=== PATIENT | female | born 1990 | race Caucasian/White ===

== ENCOUNTER 2018-10-09 15:15 | Emergency (ER) | payer OTHER ==
--- NOTE | 2018-10-09 16:16 | EDPHY ---
HPI/HX/ROS/PE/MDM Narrative: CHIEF COMPLAINT: Chest pain x3 days HISTORY OF PRESENT ILLNESS: 28-year-old female presents emergency department reporting that she developed left-sided chest discomfort about 3 days ago. Discomfort has been consistent and present since that time. She has some dyspnea on exertion. She has also noted intermittent episodes of a fast heart rate. Slight lightheadedness with this but no fainting. No radiation of the pain. No nausea, vomiting, or diarrhea. No fevers or chills. Patient did feel like she may be developing a cold with complaints of a "scratchy" feeling in the center of her chest. She took some Mucinex. She has not had a significant cough. She is also worried because her father of an aortic dissection secondary to Marfan syndrome. No history of DVTs or PEs. No estrogen use. Nonsmoker. REVIEW OF SYSTEMS: Aside from elements discussed in the HPI, a comprehensive 10-point review of systems was reviewed and is negative. PAST MEDICAL HISTORY: Patient denies. SOCIAL HISTORY: No control currently, no estrogen use, nonsmoker. Does drink alcohol each evening. VITAL SIGNS: Reviewed by me. Heart rate noted to be 110s to 120s during my examination. GENERAL: Well-developed, well-nourished, resting comfortably in no respiratory distress. HEENT: Atraumatic. Eyes: No icterus, no injection. Mouth: moist mucous membranes. No erythema or lesions. Neck: supple with no adenopathy. LUNGS: Clear to auscultation bilaterally, no wheezes, rhonchi or rales. CARDIAC: Mild tachycardia. No rubs murmurs or gallops. CHEST: Tenderness to palpation along the left sternal border. No crepitus. ABDOMEN: Soft, nontender, nondistended, bowel sounds normal. BACK: No CVA tenderness. EXTREMITIES: No trauma. No edema. Range of motion is normal throughout. NEURO: Alert and oriented, grossly nonfocal. SKIN: Warm and dry, no rash. PSYCHIATRIC: Normal mentation, no agitation. Portions of this note were transcribed by a senior medical technologist. I personally performed a history, physical exam, medical decision making, and confirmed accuracy of information the transcribed note. ED Course: 28-year-old female presenting with 3 days of left-sided chest discomfort. Patient does have slight tenderness on examination. She feels like she may be developing a very slight upper respiratory infection. She certainly has not had significant infectious symptomatology. No risk factors for DVTs or PEs. She is somewhat tachycardic so a D-dimer will be ordered. Her father also from an aortic dissection secondary to Marfan syndrome. EKG demonstrates normal sinus rhythm without acute ischemic changes. Troponin, after 3 days of pain, is negative. D-dimer is negative. Laboratory evaluation is negative. Chest x-ray demonstrates fibrotic streaks at the left base, aortic silhouette appears normal. Large lung volumes. Patient received a neb treatment with really no change in her symptoms. I held a long discussion with the patient concerning the workup thus far. She remains is concerned regarding a possibility of a dissection. She did have abnormal bilateral blood pressure measurements. CT angiogram of the chest was ordered. This was reported to me by Dr. Hoffman showing no evidence of dissection. Patient was discharged with a diagnosis of chest pain, not otherwise specified. She will use Tylenol or ibuprofen as needed for her left-sided chest discomfort. She will follow up with Cardiology or her primary care physician to consider Holter monitor. MDM: Differential diagnosis of the patient's complaints of chest pain, mild dyspnea on exertion, and intermittent tachycardia was considered including but not limited to various causes of sinus tachycardia, hyperthyroidism, PE, SVT, atrial flutter and atrial fibrillation, pulmonary etiology, bronchospasm, pleurisy, aortic dissection. - Data Points Imaging Results: Imaging Impressions Chest X-Ray 10/09/18 16:28 Impression: Focal fibrotic streaks left base. Otherwise, normal chest x-ray. Chest/Thorax CTA 10/09/18 17:42 Impression: 1. Normal CT chest with contrast. No evidence of thoracic aortic aneurysm or dissection. Findings discussed with Shannan Choudhury MD at 18:28 hour, 10/09/2018. Imaging: Discussed imaging studies w/ aircraft powertrain repairer Radiologist Laboratory Results: Laboratory Results 10/09/18 16:08 10/09/18 16:08 10/09/18 10/09/18 10/09/18 16:33 16:08 16:08 WBC RBC Hgb Hct MCV MCH MCHC RDW Plt Count MPV Neut % (Auto) Lymph % (Auto) Scott % (Auto) Eos % (Auto) Baso % (Auto) Nucleat RBC Rel Count Absolute Neuts (auto) Absolute Lymphs (auto) Absolute Monos (auto) Absolute Eos (auto) Absolute Basos (auto) Absolute Nucleated RBC Immature Gran % Immature Gran # D-Dimer < 0.27 ug/mLFEU ug/mLFEU (0.00-0.50) Sodium Potassium Chloride Carbon Dioxide Anion Gap BUN Creatinine Estimated GFR Glucose Calcium POC Troponin I 0.00 ng/mL ng/mL (0.00-0.08) TSH 0.996 uIU/mL uIU/mL (0.465-4.680) Beta HCG, Qual 10/09/18 10/09/18 10/09/18 16:08 16:08 16:08 WBC 7.76 10^3/uL 10^3/uL (3.80-9.50) RBC 4.61 10^6/uL 10^6/uL (4.18-5.33) Hgb 13.8 g/dL g/dL (12.6-16.3) Hct 40.4 % % (38.0-47.0) MCV 87.6 fL fL (81.5-99.8) MCH 29.9 pg pg (27.9-34.1) MCHC 34.2 g/dL g/dL (32.4-36.7) RDW 12.1 % % (11.5-15.2) Plt Count 214 10^3/uL 10^3/uL (150-400) MPV 10.0 fL fL (8.7-11.7) Neut % (Auto) 81.2 % H % (39.3-74.2) Lymph % (Auto) 13.1 % L % (15.0-45.0) Scott % (Auto) 4.6 % % (4.5-13.0) Eos % (Auto) 0.3 % L % (0.6-7.6) Baso % (Auto) 0.4 % % (0.3-1.7) Nucleat RBC Rel Count 0.0 % % (0.0-0.2) Absolute Neuts (auto) 6.30 10^3/uL 10^3/uL (1.70-6.50) Absolute Lymphs (auto) 1.02 10^3/uL 10^3/uL (1.00-3.00) Absolute Monos (auto) 0.36 10^3/uL 10^3/uL (0.30-0.80) Absolute Eos (auto) 0.02 10^3/uL L 10^3/uL (0.03-0.40) Absolute Basos (auto) 0.03 10^3/uL 10^3/uL (0.02-0.10) Absolute Nucleated RBC 0.00 10^3/uL 10^3/uL (0-0.01) Immature Gran % 0.4 % % (0.0-1.1) Immature Gran # 0.03 10^3/uL 10^3/uL (0.00-0.10) D-Dimer Sodium 137 mEq/L mEq/L (135-145) Potassium 3.4 mEq/L L mEq/L (3.5-5.2) Chloride 107 mEq/L mEq/L (97-110) Carbon Dioxide 21 mEq/l L mEq/l (22-31) Anion Gap 9 mEq/L mEq/L (6-14) BUN 13 mg/dL mg/dL (7-23) Creatinine 0.8 mg/dL mg/dL (0.6-1.0) Estimated GFR > 60 Glucose 100 mg/dL mg/dL (70-100) Calcium 9.0 mg/dL mg/dL (8.5-10.4) POC Troponin I TSH Beta HCG, Qual NEGATIVE Medications Given: Discontinued Medications Albuterol (Proventil Neb) 3 ml IH EDNOW ONE Stop: 10/09/18 17:13 Last Admin: 10/09/18 17:22 Dose: 3 ml Sodium Chloride (Ns) 500 mls @ 0 mls/hr IV EDNOW ONE; Wide Open PRN Reason: Protocol Stop: 10/09/18 16:28 Last Admin: 10/09/18 16:46 Dose: Not Given Point of Care Test Results: Chemistry 10/09/18 16:33 POC Troponin I 0.00 ng/mL ng/mL (0.00-0.08) General Time Seen by Provider: 10/09/18 16:11 Initial Vital Signs: Initial Vital Signs Temperature (C) 37.0 C 10/09/18 15:32 Heart Rate 114 H 10/09/18 15:32 Respiratory Rate 18 10/09/18 15:32 Blood Pressure 130/87 H 10/09/18 15:32 O2 Sat (%) 99 10/09/18 15:32 O2 Delivery Mode Room Air Allergies/Adverse Reactions: No Known Allergies Allergy (Unverified 10/09/18 15:36) Home Medications: Medication Instructions Recorded NK [No Known Home Meds] 10/09/18 Departure - Departure Disposition: Home, Routine, Self-Care Clinical Impression: Intermittent palpitations Chest pain Qualifiers: Chest pain type: unspecified Qualified Code(s): R07.9 - Chest pain, unspecified Condition: Good Instructions: Chest Pain (ED), Heart Palpitations (ED) Additional Instructions: There is no clear cause of your chest pain that has been identified. There is no evidence of aortic dissection, aneurysm, or blood clot in your chest CT. I would suggest to use ibuprofen for your chest discomfort. Please follow up with the car rental manager as directed below to obtain a Holter monitor. Please make note of when the heart palpitations seem to occur the most commonly. Please return to the emergency department or seek care urgently if you develop severe shortness of breath, worsening chest pain, lightheadedness, fainting, or other concerns. Referrals: Linnea Quiros MD [Medical Doctor] - As per Instructions (Dr. Quiros is a car rental manager. Please follow up with Dr. Quiros or 1 of her partners early next week for further evaluation if you continue to have chest pain and palpitations. ) Jessica Sloan MD [Medical Doctor] - As per Instructions (Dr. Sloan is internal medicine doctor. Please follow up with her for further evaluation regarding your symptoms.) Report Scribed for: Shannan Choudhury Report Scribed by: Carol Acuña Date of Report: 10/09/18 Time of Report: 16:16
[2018-10-09] MEDS ORDERED: NS 500 ML IV ONE (16:27)
[2018-10-09 16:36] LABS: PLATELET COUNT 214 10^3/uL (150-400)
--- NOTE | 2018-10-09 16:48 | CPEKG ---
Test Reason : OPEN Blood Pressure : / mmHG Vent. Rate : 082 BPM Atrial Rate : 083 BPM P-R Int : 174 ms QRS Dur : 081 ms QT Int : 348 ms P-R-T Axes : 066 079 019 degrees QTc Int : 407 ms Sinus rhythm Confirmed by Shannan Choudhury ([id number]) on 10/09/2018 4:47:35 PM Referred By: PHYSICIAN ED Confirmed By:Shannan Choudhury
[2018-10-09] MEDS ORDERED: ALBUTEROL 3 ML DEYVIAL IH ONE (17:12)
[2018-10-09] MEDS ORDERED: IOPAMIDOL (ISOVUE 370) 100 ML BTL IV ONE (17:46)
[2018-10-09 18:15] VITALS: BP 125/84
== END 2018-10-09 18:42 | disposition home or self-care (01) ==
DX: R00.2 Palpitations (principal); R07.9 Chest pain, unspecified
CPT/HCPCS: 84484-ER; J7613; Q9967